=== PATIENT | female | born 1940 ===

== ENCOUNTER 2018-06-14 10:00 | Inpatient (IN) | payer OTHER ==
[~2018-06-14] VITALS: Ht 152.4 cm; Wt 68.0 kg
[2018-06-14] MEDS ORDERED: ALENDRONATE SOD35 MG PO (13:55)
[2018-06-14] MEDS ORDERED: PRED FORTE1 ML OP (13:56)
[2018-06-14] MEDS ORDERED: AMLODIPINE BESYL5 MG PO (13:56)
[2018-06-14] MEDS ORDERED: COZAAR100 MG PO (13:57)
[2018-06-14] MEDS ORDERED: LIPITOR40 MG PO (13:57)
[2018-06-14] MEDS ORDERED: AVAPRO300 MG PO (13:57)
[2018-06-21] MEDS ORDERED: INTEGRA PLUS C1 EACH PO (06:38)
[2018-06-21] MEDS ORDERED: XARELTO10 MG PO (06:38)
[2018-06-21] MEDS ORDERED: PERCOCET 5-3251 EACH PO (06:39)
[2018-06-21] MEDS ORDERED: CEFADROXIL500 MG PO (06:40)
== END 2018-06-21 12:35 | disposition home or self-care (01) | DRG 483 ==
LOC: SURH 06-20 06:04 → O/R 06-20 06:04 → SURH 06-20 07:00
PROVIDERS: Orthopaedic Surgery Sports Medicine
PROC: 0LN10ZZ Release Right Shoulder Tendon, Open Approach (ICD-10-PCS; 2018-06-20)
PROC: 0RRJ00Z Replacement of Right Shoulder Joint with Reverse Ball and Socket Synthetic Substitute, Open Approach (ICD-10-PCS; principal; 2018-06-20 07:00)
DX: M19.011 Primary osteoarthritis, right shoulder (principal); M75.121 Complete rotator cuff tear or rupture of right shoulder, not specified as traumatic; M65.811 Other synovitis and tenosynovitis, right shoulder